=== PATIENT | female | born 1985 | race Caucasian/White ===

== ENCOUNTER 2023-09-28 19:34 | Emergency (ER) | payer MEDICAID ==
[2023-09-28 20:03] VITALS: BP 118/60; O2SAT 100
--- NOTE | 2023-09-28 22:22 | ED Physician Documentation ---
PD HPI UPPER EXT INJURY - Stated complaint Stated Complaint: LT HAND LAC - Chief complaint Chief Complaint: Trauma Ext - Additonal information Additional information: 37-year-old female with no pertinent past medical history presents emergency department for left hand laceration. Patient says that she was try to cut an avocado with a knife accidentally slipped and cut into the palmar aspect just below her left thumb. She is able to move her thumb without any difficulty unsure when her last tetanus was bleeding is well-controlled.Tetanus shot is up-to-date PD PAST MEDICAL HISTORY - Past Medical History Past Medical History: Yes Neuro: Migraines [employer]: Endometriosis - Past Surgical History Past Surgical History: No - Allergies Allergies/Adverse Reactions: Allergies Allergy/AdvReac Type Severity Reaction Status Date / Time No Known Drug Allergies Allergy Verified 09/28/23 20:00 - Social History Does the pt smoke?: No Smoking Status: Never smoker - Immunizations Immunizations: TDAP >10years/unknown PD ED PE NORMAL - Vitals Vital signs reviewed: Yes - General General: Alert and oriented X 3, No acute distress, Well developed/nourished - Derm Derm: Other (2 cm laceration to left palm just below the left thumb. Able to flex and extend thumb without difficulty CMS intact bleeding well-controlled) - Extremities Extremities: No deformity, Normal ROM s pain Results - Vitals Vitals: Vital Signs - 24 hr 09/28/23 09/28/23 19:56 22:37 Temperature 36.8 C 36.8 C Heart Rate 80 80 Respiratory 18 18 Rate Blood Pressure 118/60 118/60 O2 Saturation 100 100 Oxygen O2 Source Room air Procedures - Laceration (location) left palm hand laceration just below thumb Length in cm: 2 Wound type: Curved, Flap, Into subcut fat, Clean Neurovascular status: Sensory intact, Motor intact, Vascular intact Tendon involvement: Tendon intact Anesthesia: Lidocaine 1% Skin layer closure: Nylon, Interrupted, Size #-0 - enter number (4-0), Sutures - enter # (4) Other: Patient tolerated well, No complications, Neurovascular intact, Dressing applied, Tetanus UTD PD Medical Decision Making - ED course ED course: Wound inspected under direct bright light with good visualization. Area with linear laceration across soft tissue through adipose without exposure of muscle belly or tendon. No overt foreign body. Area hemostatic. Neurovascular exam congruent with above. Area extensively irrigated with sterile normal saline under pressure. Laceration repaired in simple fashion (please see procedure note for further details). Patient tolerated procedure well and neurovascular exam intact and unchanged post repair with intact distal pulses and cap refill. Cautious return precautions discussed w/ full understanding. Wound care discussed. Prompt follow up with primary care physician discussed and return for suture removal in 14 days. Departure - Departure Disposition: 01 Home, Self Care Clinical Impression: Hand laceration Instructions: ED Laceration Hand Comments: Come back for any signs of infection which would include: Redness, swelling, drainage, increased pain, or fevers. You can wash it soap and water. Keep it covered and moist with bacitracin ointment which is available over the counter; avoid neosporin. Follow-up with your physician in 12-14 days for suture removal. Forms: PCP List Discharge Date/Time: 09/28/23 22:37
[2023-09-28] MEDS: BACITRACIN ZINC OINT 1 PACKET TOP STA (22:30)
[2023-09-28] MEDS: TETANUS/DIPHTHERIA/PERTUSSIS 0.5 ML SYRINGE IM ONE (22:31)
== END 2023-09-28 22:37 | disposition home or self-care (01) ==
LOC: ED 19:34
DX: S61.412A Laceration without foreign body of left hand, initial encounter (principal); W26.0XXA Contact with knife, initial encounter; Y93.G1 Activity, food preparation and clean up; Z23 Encounter for immunization
CPT/HCPCS: 12001; 90471; 99283